=== PATIENT | female | born 1995 | race Two or more races ===

== ENCOUNTER 2025-06-20 04:35 | Inpatient (IN) | payer MEDICAID, OTHER ==
[2025-06-20] VITALS (7 sets, daily range): BP systolic 109–118; BP diastolic 73–79; PULSE 79–102; RESP 12–18; TEMP 97.4–97.9; O2SAT 94–99
[~2025-06-20] VITALS: Ht 160 cm; Wt 72.2 kg
--- NOTE | 2025-06-20 04:52 | ED.PDOC ---
GI ASSESSMENT HPI Comments 29 year old female presents to the ED with a chief complaint of abdominal pain onset 6 months. Patient has been experiencing intermittent RUQ pain for the past 6 months, was diagnosed with gallstones. Last night, patient noticed pain became constant, radiates to back. She took [place] at 04:00, had a slight improvement. Denies nausea, vomiting, diarrhea, fever, chills, dysuria, hematuria. No other symptoms or modifying factors present at this time. Chief Complaint: Abdominal Pain Time Seen by MD: 04:45 Reviewed Notes: Medications, Allergies Allergies: Coded Allergies: Cefaclor (Verified Allergy, Unknown, 06/20/25) Sulfa Antibiotics (Verified Allergy, Unknown, 06/20/25) Information Source: Patient, Spouse Mode of Arrival: Ambulatory Timing: Months Duration: Since onset Prehospital treatment: Pain Meds Quality: Sharp Vomitus: None Severity: Moderate Recent: None Recent Hx of: None Pain Location: RUQ Associated sign and symptoms: Abdominal Pain Past Medical History PAST MEDICAL HISTORY: Gallstones Surgical History: COMMUNICATION STUDIES PROFESSOR History: No Pertinent COMMUNICATION STUDIES PROFESSOR History Family History Family History: Reviewed,noncontributory to illness, No family hx of Cancer, No family hx of DM, No family hx of Heart nikia, No family hx of HTN, No family hx ofKidney nikia, No family hx of Liver nikia, No family hx of Lung nikia, No family hx of Stroke Social History Smoker: Non-Smoker Alcohol: Denies ETOH Use Drugs: Denies Drug Use Lives In: Home Constitutional: denies: chills, diaphoresis, fatigue, fever, malaise, sweats, weakness, others EENTM: denies: blurred vision, double vision, ear bleeding, ear discharge, ear drainage, ear pain, ear ringing, eye pain, eye redness, hearing loss, mouth pain, mouth swelling, nasal discharge, nose bleeding, nose congestion, nose pain, photophobia, tearing, throat pain, throat swelling, voice changes, others Respiratory: denies: cough, hemoptysis, orthopnea, SOB at rest, shortness of breath, SOB with excertion, stridor, wheezing, others Cardiovascular: denies: chest pain, dizzy spells, diaphoresis, Dyspnea on exertion, edema, irregular heart beat, left arm pain, lightheadedness, palpitations, PND, syncope, others Gastrointestinal: reports: abdominal pain; denies: abdomen distended, blood streaked bowels, constipated, diarrhea, dysphagia, difficulty swallowing, hematemesis, melena, nausea, poor appetite, poor fluid intake, rectal bleeding, rectal pain, vomiting, others Genitourinary: denies: abnormal vagina bleeding, burning, dyspareunia, dysuria, flank pain, frequency, hematuria, incontinence, pain, , vagina discharge, urgency, others Neurological: denies: dizziness, fainting, headache, left sided numbness, left sided weakness, numbness, paresthesia, pre-existing deficit, right sided numbness, right sided weakness, seizure, speech problems, tingling, tremors, weakness, others Musculoskeletal: reports: back pain; denies: gout, joint pain, joint swelling, muscle pain, muscle stiffness, neck pain, others Integumetry: denies: bruises, change in color, change in hair/nails, dryness, laceration, lesions, lumps, rash, wounds, others Allergic/Immunocompromised: denies: Difficulty Healing, Frequent Infections, Hives, Itching, others Hematologic/Lymphatic: denies: anemia, blood clots, easy bleeding, easy bruising, swollen glands, others Endocrine: denies: excessive hunger, excessive sweating, excessive thirst, excessive urination, flushing, intolerance to cold, intolerance to heat, unexplained weight gain, unexplained weight loss, others Psychiatric: denies: anxiety, bipolar disorder, depression, hopeless, panic disorder, schizophrenia, sleepless, suicidal, others All Other Systems: Reviewed and Negative Physical Exam General Appearance: No Apparent Distress, Normal HEENT: Normal ENT Inspection, Pharynx Normal, TMs Normal Neck: Full Range of Motion, Non-Tender, Normal, Normal Inspection Respiratory: Chest Non-Tender, Lungs Clear, No Accessory Muscle Use, No Respiratory Distress, Normal Breath Sounds Cardiovascular: No Edema, No JVD, No Murmur, No Gallop, Normal Peripheral Pulses, Regular Rate/Rhythm Breast Exam: Deferred Gastrointestinal: No Organomegaly, Non Tender, No Pulsatile Mass, Normal Bowel Sounds, Soft Genitalia: Deferred Pelvic: Deferred Rectal: Deferred Extremities: No calf tenderness, Normal capillary refill, Normal inspection, Normal range of motion, Non-tender, No pedal edema Musculoskeletal : Apperance: Normal Neurologic: Alert, supervisor trust accounts II-XII nml as Tested, No Motor Deficits, Normal Affect, Normal Mood, No Sensory Deficits Cerebellar Function: Normal Reflexes: Normal Skin: Dry, Normal Color, Warm Lymphatic: No Adenopathy Was a procedure done? Was a procedure done?: No GI differential Dx Differential Diagnosis: Cholecystitis, Gastritis/PUD, Gastroenteritis, Ischemic Bowel X-Ray, Labs, Meds, VS Vital Signs Date Time Temp Pulse Resp B/P (MAP) Pulse Ox O2 Delivery O2 Flow Rate FiO2 06/20/25 08:08 98.0 78 18 110/75 (87) 98 98.0 06/20/25 05:05 Room Air* 0 21 06/20/25 05:05 97.6 80 16 114/71 (85) 97 97.6 06/20/25 04:36 98.0 69 16 127/84 100 98.0 Lab Test 06/20/25 05:50 06/20/25 04:53 Range/Units Urine Color Yellow Yellow Urine Clarity Clear Clear Urine pH 5.5 5.0-9.0 Urine Specific [place] 1.033 1.001-1.035 Urine Protein Negative Negative Urine Ketones Negative Negative Urine Blood Negative Negative /uL Urine Nitrite Negative Negative Urine Bilirubin Negative Negative Urine Urobilinogen Normal Negative mg/dL Urine Leukocyte Esterase Negative Negative /uL Urine RBC None seen 0 - 4 /hpf Urine Microscopic WBC 3 0-5 /HPF Urine Squamous Epithelial Cells Few <5 /hpf Urine Bacteria None seen None Seen /hpf Urine Mucus Few None Seen Urine Glucose Normal Normal mg/dL Urine Test Negative Negative White Blood Count 11.6 H 4.4-10.8 10^3/uL Red Blood Count 4.62 4.0-5.20 10^6/uL Hemoglobin 13.5 12.2-16.2 g/dL Hematocrit 39.6 36.0-46.0 % Mean Corpuscular Volume 85.7 80.0-100.0 fL Mean Corpuscular Hemoglobin 29.2 28.0-32.0 pg Mean Corpuscular Hemoglobin Concent 34.0 32.0-36.0 g/dL Red Cell Distribution Width 13.0 11.8-14.3 % Platelet Count 419 140-450 10^3/uL Mean Platelet Volume 8.5 6.9-10.8 fL Neutrophils (%) (Auto) 71.1 37.0-80.0 % Lymphocytes (%) (Auto) 20.1 10.0-50.0 % Monocytes (%) (Auto) 5.9 0.0-12.0 % Eosinophils (%) (Auto) 2.3 0.0-7.0 % Basophils (%) (Auto) 0.6 0.0-2.0 % Neutrophils # (Auto) 8.2 1.6-8.6 10 ^3/uL Lymphocytes # (Auto) 2.3 0.4-5.4 10 ^3/uL Monocytes # (Auto) 0.7 0-1.3 10 ^3/uL Eosinophils # (Auto) 0.3 0-0.8 10 ^3/uL Basophils # (Auto) 0.1 0-0.2 10 ^3/uL Nucleated Red Blood Cells 0.1 % Sodium Level 142 136-145 mmol/L Potassium Level 3.8 3.5-5.1 mmol/L Chloride Level 107 98-107 mmol/L Carbon Dioxide Level 25 20-31 mmol/L Anion Gap 10 5-15 Blood Urea Nitrogen 11 9-23 mg/dL Creatinine 0.78 0.550-1.02 mg/dL Glomerular Filtration Rate Calc 104 >90 mL/min BUN/Creatinine Ratio 14.1 10.0-20.0 Serum Glucose 94 74-106 mg/dL Calcium Level 8.8 8.7-10.4 mg/dL Total Bilirubin 0.3 0.2-1.0 mg/dL Aspartate Amino Transferase (AST) 16 13-40 U/L Alanine Aminotransferase (ALT) 13 7-40 U/L Alkaline Phosphatase 84 46-116 U/L Total Protein 7.4 5.7-8.2 g/dL Albumin 4.6 3.2-4.8 g/dL Lipase 44 12-53 U/L Current Medications Medications (Trade) Dose Ordered Sig/Max Route Start Time Stop Time Status Last Admin Ondansetron HCl (Zofran) 4 mg ONCE ONCE IV 06/20/25 05:00 06/20/25 05:01 SD 06/20/25 05:10 Ketorolac Tromethamine (Toradol Injection) 15 mg ONCE ONCE IV 06/20/25 05:00 06/20/25 05:01 DC 06/20/25 05:10 Time of 1ST Reevaluation: 05:15 Reevaluation 1ST: Unchanged Patient Education/Counseling: Diagnosis, Treatment, Prognosis Family Education/Counseling: Diagnosis, Treatment, Prognosis SEPSIS Sepsis Screen Date sepsis recognized/suspect: Jun 20, 2025 Time Sepsis recognized/suspect: 437 Recent Procedure: No On Antibiotic Therapy: No Respiratory Rate >20: No Heart Rate >90: No Temp<36 C (96.8 F) or >38.3 C: No SBP <90 or MAP <65 mmHG: No New Acute Mental Status Change: No Is the patient on CPAP, BIPAP,: No Physician Orders Gallbladder (06/20/25 04:49) Morphine Sulfate Injection (06/20/25 08:45) Vital Signs Date Time Temp Pulse Resp B/P (MAP) Pulse Ox O2 Delivery O2 Flow Rate FiO2 06/20/25 08:08 98.0 78 18 110/75 (87) 98 98.0 06/20/25 05:05 Room Air* 0 21 06/20/25 05:05 97.6 80 16 114/71 (85) 97 97.6 06/20/25 04:36 98.0 69 16 127/84 100 98.0 Laboratory Tests Test 06/20/25 04:53 White Blood Count 11.6 10^3/uL (4.4-10.8) H Medications Medications Dose Ordered Sig/Max Route Start Time Stop Time Status Last Admin Dose Admin Ketorolac Tromethamine 15 mg ONCE ONCE IV 06/20/25 05:00 06/20/25 05:01 DC 06/20/25 05:10 Ondansetron HCl 4 mg ONCE ONCE IV 06/20/25 05:00 06/20/25 05:01 DC 06/20/25 05:10 Departure 1 Departure Time of Disposition: 08:41 (Patient presented with abdominal pain that was concerning for possible appendicits, gastritis, cholecystitis, colitis, gastroenteritis, sbo, or orther possible surgical emergency. Data: 1. I ordered and reviewed the result of at least 3 labs including a CBC, BMP, and Urinalysis. 2. I independently interpreted the following tests: CT Abdoment and Pelvis is concerning for acute cholecystitis .Risk:This patient has a high risk of morbidity due to further diagnostic testing or treatment and may suffer from an acute abdominal process disorder. Workup reveals acute cholecystitis and patient should be admitted for further workup. and possible expert consultation. ) Impression: Primary Impression: Acute cholecystitis Additional Impressions: Right upper quadrant pain Intractable abdominal pain Disposition: ADMITTED INPATIENT Admit to: Med Surg Condition: Guarded Critical Care Note Critical Care Time?: Yes Critical care comment: Intractable abdominal pain Authorized and Performed by: Christiano Lott MD Total critical care time: Approximately 38 minutes Due to a high probability of clinically significant, life threatening deteriorat ion, the patient required my highest level of preparedness to intervene emergently and I personally spent this critical care time directly and personally managing the patient. This critical care time included obtaining a history; examining the patient; pulse oximetry; ordering and review of studies; arranging urgent treatment with development of a management plan; evaluation of patient's response to treatment; frequent reassessment; and, discussions with other providers. This critical care time was performed to assess and manage the high probability of imminent, life-threatening deterioration that could result in multi-organ failure. It was exclusive of separately billable procedures and treating other patients and teaching time. Please see my other sections and the rest of the note for further information on patient assessment and treatment. Stability Stability form required: No I personally scribed for EVERT BARNEY MD ([email or web address]) on 06/20/25 at 04:52. Electronically submitted by Sary Juárez ([email or web address]). EVERT BARNEY MD Jun 20, 2025 04:52 CHRISTIANO LOTT MD Jun 20, 2025 08:42
[2025-06-20] MEDS: ONDANSETRON HCL 4 MG/2 ML VIAL IV ONE ×3 (05:10→14:00)
[2025-06-20] MEDS: KETOROLAC TROMETH 30 MG/ML 1ML VIAL IV ONE (05:10)
[2025-06-20 05:36] LABS: Hematocrit 39.6 % (36.0-46.0); Hemoglobin 13.5 g/dL (12.2-16.2); Mean Corpuscular Hemoglobin 29.2 pg (28.0-32.0); Mean Corpuscular Volume 85.7 fL (80.0-100.0); Nucleated Red Blood Cells % 0.1 %
[2025-06-20 05:52] LABS: Alanine Aminotransferase 13 U/L (7-40); Albumin 4.6 g/dL (3.2-4.8); Alkaline Phosphatase 84 U/L (46-116); Chloride 107 mmol/L (98-107); Potassium 3.8 mmol/L (3.5-5.1); Sodium 142 mmol/L (136-145)
[2025-06-20 06:09] LABS: Urine Protein, UAD Negative (Negative)
[2025-06-20 06:13] LABS: Anion Gap 10 (5-15); Calcium 8.8 mg/dL (8.7-10.4); Carbon Dioxide 25 mmol/L (20-31)
[2025-06-20 06:18] LABS: BUN/Creatinine Ratio 14.1 (10.0-20.0); Blood Urea Nitrogen 11 mg/dL (9-23); Glucose 94 mg/dL (74-106); Lipase 44 U/L (12-53)
[2025-06-20 06:19] LABS: Total Protein 7.4 g/dL (5.7-8.2)
[2025-06-20 06:20] LABS: Bilirubin, Total 0.3 mg/dL (0.2-1.0)
--- NOTE | 2025-06-20 06:56 | DVH ---
EXAM: US GALLBLADDER INDICATION: RUQ pain, h/o gallstones TECHNIQUE: Multiple real-time sonographic images were obtained of the right upper quadrant. COMPARISON: None FINDINGS: The liver demonstrates increased echotexture without focal mass lesions. The liver measures 13.0 cm. There is hepatopedal color doppler flow in the main portal vein. There is no intrahepatic b iliary ductal dilatation. The gallbladder contains an echogenic shadowing structure reflecting a stone that measures 1.4 cm. T he gallbladder wall measures 0.6 cm. The common bile duct measures 0.2 cm. There is a positive so nographic Bill's sign. The right kidney measures 10.7 cm. The right kidney is normal in contour, size, and shape. The echo genicity is normal. There is no hydronephrosis. The pancreas is not well visualized due to overlying bowel gas. Visualized portions of the aorta and inferior vena cava are unremarkable. No evidence of ascites. IMPRESSION: 1. Gallstone and acute cholecystitis. 2. Hepatic steatosis.
[2025-06-20] MEDS: HYDROmorphone HCL 2 MG/ML VL/or syr IV ONE (08:25)
[2025-06-20] MEDS: MORPHINE SULFATE 4 MG/ML SYR/VIAL IV ONE (08:49)
[2025-06-20] MEDS: SODIUM CHLORIDE 0.9% 1,000 ML IV ONE (08:56)
[2025-06-20] MEDS: ceFAZolin 2 GM/D5W50ml 50 ML IV ONE (10:23)
[2025-06-20] MEDS ORDERED: PROPOFOL 10 MG/ML 20 ML IV ONE (11:23)
[2025-06-20] MEDS ORDERED: fentaNYL CITRATE 100 MCG/2 ML VL ONE (11:23)
[2025-06-20] MEDS ORDERED: HYDROmorphone HCL 2 MG/ML VL/or syr ONE (11:24)
--- NOTE | 2025-06-20 11:24 | DVHINCON2 ---
Consultation - Surgical Date Seen: Jun 20, 2025 Referring Physician Reason for Consultation Acute cholecystitis History of Present Illness History of Present Illness Mrs. Mchugh is a 29 yo F who presents with RUQ pain that started last night and has been barely relieved with the use of norco. Associated with nausea but no emesis. First episode was approximately 2 yrs ago during her last . Symptoms abated after but since November she has bee getting intermittent episodes. Denies: fevers, chills, acholic stools, darkening of urine. PMH: denies PSH: CS x1; Dx lap for endometriosis ETOH/TOB/Drugs: denies Allergies and medications Allergies: Coded Allergies: Cefaclor (Verified Allergy, Unknown, 06/20/25) Sulfa Antibiotics (Verified Allergy, Unknown, 06/20/25) Review of systems Review of Systems: Not Done Examination Vital signs Vital Signs Date Time Temp Pulse Resp B/P (MAP) Pulse Ox O2 Delivery O2 Flow Rate FiO2 06/20/25 08:08 98.0 78 18 110/75 (87) 98 98.0 06/20/25 05:05 Room Air* 0 21 Laboratory Labs Test 06/20/25 05:50 06/20/25 04:53 Range/Units Urine Color Yellow Yellow Urine Clarity Clear Clear Urine pH 5.5 5.0-9.0 Urine Specific [place] 1.033 1.001-1.035 Urine Protein Negative Negative Urine Ketones Negative Negative Urine Blood Negative Negative /uL Urine Nitrite Negative Negative Urine Bilirubin Negative Negative Urine Urobilinogen Normal Negative mg/dL Urine Leukocyte Esterase Negative Negative /uL Urine RBC None seen 0 - 4 /hpf Urine Microscopic WBC 3 0-5 /HPF Urine Squamous Epithelial Cells Few <5 /hpf Urine Bacteria None seen None Seen /hpf Urine Mucus Few None Seen Urine Glucose Normal Normal mg/dL Urine Test Negative Negative White Blood Count 11.6 H 4.4-10.8 10^3/uL Red Blood Count 4.62 4.0-5.20 10^6/uL Hemoglobin 13.5 12.2-16.2 g/dL Hematocrit 39.6 36.0-46.0 % Mean Corpuscular Volume 85.7 80.0-100.0 fL Mean Corpuscular Hemoglobin 29.2 28.0-32.0 pg Mean Corpuscular Hemoglobin Concent 34.0 32.0-36.0 g/dL Red Cell Distribution Width 13.0 11.8-14.3 % Platelet Count 419 140-450 10^3/uL Mean Platelet Volume 8.5 6.9-10.8 fL Neutrophils (%) (Auto) 71.1 37.0-80.0 % Lymphocytes (%) (Auto) 20.1 10.0-50.0 % Monocytes (%) (Auto) 5.9 0.0-12.0 % Eosinophils (%) (Auto) 2.3 0.0-7.0 % Basophils (%) (Auto) 0.6 0.0-2.0 % Neutrophils # (Auto) 8.2 1.6-8.6 10 ^3/uL Lymphocytes # (Auto) 2.3 0.4-5.4 10 ^3/uL Monocytes # (Auto) 0.7 0-1.3 10 ^3/uL Eosinophils # (Auto) 0.3 0-0.8 10 ^3/uL Basophils # (Auto) 0.1 0-0.2 10 ^3/uL Nucleated Red Blood Cells 0.1 % Sodium Level 142 136-145 mmol/L Potassium Level 3.8 3.5-5.1 mmol/L Chloride Level 107 98-107 mmol/L Carbon Dioxide Level 25 20-31 mmol/L Anion Gap 10 5-15 Blood Urea Nitrogen 11 9-23 mg/dL Creatinine 0.78 0.550-1.02 mg/dL Glomerular Filtration Rate Calc 104 >90 mL/min BUN/Creatinine Ratio 14.1 10.0-20.0 Serum Glucose 94 74-106 mg/dL Calcium Level 8.8 8.7-10.4 mg/dL Total Bilirubin 0.3 0.2-1.0 mg/dL Aspartate Amino Transferase (AST) 16 13-40 U/L Alanine Aminotransferase (ALT) 13 7-40 U/L Alkaline Phosphatase 84 46-116 U/L Total Protein 7.4 5.7-8.2 g/dL Albumin 4.6 3.2-4.8 g/dL Lipase 44 12-53 U/L Examination: GENERAL:Normal, HEENT:Normal (no icterus), ABDOMEN:Abnormal (non distended, scars well healed, soft, depressible, RUQ tender, Neg Bill's, no rebound, no guarding) Problem List/Assessment/Plan Problems: (1) Acute cholecystitis Assessment and Plan 29 yo F who presents with acute cholecystitis with mild leukocytosis. US shows stone at neck with thick gallbladder wall, but no pericholecystic fluid. Pt will benefit from lap cholecystectomy. Procedure, risks, benefits, complications and alternatives discussed with patient and family. They agree with surgical plan. -Admit to hospitalist -java technical manager to OR for lap kiko -Zosyn -CBC/CMP/Direct bili in am -Low fat diet post surgery Plan discussed with Plan discussed with: Patient, Spouse Visit Coding Surgery Date of Service if different f: Jun 20, 2025 Billing Provider: ADRIANNA NULL MD Surgery Visit Codes: 79650 - INP CONSULT <55 MIN ADRIANNA NULL MD Jun 20, 2025 11:24
[2025-06-20] MEDS ORDERED: ROCURONIUM 10MG/ML 10ML VIAL IV ONE (11:52)
[2025-06-20] MEDS ORDERED: ONDANSETRON HCL 4 MG/2 ML VIAL ONE (11:53)
[2025-06-20] MEDS: BUPIVACAINE 0.25% INJ 50ML VIAL ONE (12:10)
[2025-06-20] MEDS ORDERED: SUGAMMADEX 200mg/2ml Vial (100MG/ML) IV ONE (12:57)
[2025-06-20] MEDS ORDERED: ONDANSETRON HCL 4 MG/2 ML VIAL IV PRN (13:30)
--- NOTE | 2025-06-20 13:42 | DVHOP2 ---
Operative Report - 2 Report Details Date: 06/20/25 Preop Diagnosis: Acute cholecystitis Postop Diagnosis: Acute cholecystitis Surgeon: Leon Khan MD Roast Master: Ortiz Alvarado NP Anesthesiologist: Dr. Moe Anesthesia: General Consent: The patient was informed of the risks and benefits of the procedure. These include but are not limited to complications of anesthesia, postoperative infection, incomplete relief of symptoms, recurrence of symptoms, damage to blood vessels, nerves and tendons, deep venous thrombosis, pulmonary embolism and possible need for repeat surgery in the future. Complications: none Estimated Blood Loss: 5ml Findings: Acutely inflamed gallbladder with omentum adhered over it. Stone at neck of the gallbladder. Name of Procedure Performed Laparoscopic Cholecystectomy Procedure Details Procedure Details: Upon arrival to the operating room the patient was transferred to the operating table and placed in the supine with arms extended. General endotracheal anesthesia was performed. Time out was carried out. Patient was prepped and dr aped in the standard sterile surgical fashion. I made an infraumbilical curvilinear incision. Umbilical stock was grasped with Claudia. Blunt dissection was carried out to its base. Utilizing Elizabeth technique I gained entry into the peritoneal cavity. Fascia retention sutures of 0 Vicryl placed in figure of eight fashion. Elizabeth trocar was introduced and abdomen insufflated with jarrell eration to 15mmHG. I placed 3 additional 5mm ports at the epigastric/right subcostal at mid clavicular line/ right flank; under direct vision. Attention was then turned to the gallblader, it was grasped at the fundus and elevated towards the right shoulder. Omentum was adhered to the gallbladder and it was bluntly and with cautery dissected off. I then opened the peritoneum on either side of the gallbladder starting laterally. I then identified Calot's triangle. The cystic artery and cystic duct were fully skeletonized. Critical view was obtained. Then artery was clipped proximally twice and one distal. The duct was clipped three times proximally and one distal. Both artery and duct were cut. The gallbladder was then removed from the liver bed with cautery. An additional posterior branch of the cystic artery was clipped and cut. There was no spillage of bile or stones. Gallbladder and contents was placed in Endocatch bag and removed under direct vision. We then did some minimal irrigation and suctioning. Two small spots of slow ooze were cauterized, hemostasis achieved. Ports removed under direct vision. All counts complete and correct. Previous fascial stitch was closed. Skin closed with 4-0 Monocryl and [place] anderson. Marcaine 0.25% used as local. Patient tolerated the procedure well and was transferred to PACU in stable condition. Disposition Still a Patient LEON NULL MD Jun 20, 2025 13:42
[2025-06-20] MEDS: D5W/SOD CHLO 0.9% 1,000 ML IV SCH (13:45)
[2025-06-20] MEDS: ACETAMINOPHEN IV 1000 MG/100ML (10MG/ML) IV PRN (13:51)
[2025-06-20] MEDS: HYDROmorphone HCL 2 MG/ML VL/or syr IV PRN (13:51)
--- NOTE | 2025-06-20 16:24 | DVHHP2 ---
Review of Systems Allergies: Coded Allergies: Cefaclor (Verified Allergy, Unknown, 06/20/25) Sulfa Antibiotics (Verified Allergy, Unknown, 06/20/25) Medications Current Medications Medications Dose Ordered Sig/Max Route Start Time Stop Time Status Last Admin Dose Admin Morphine Sulfate 2 mg Q4HP PRN IV 06/20/25 13:45 Dextrose/Sodium Chloride 1,000 ml @ 150 mls/hr Q6H40M IV 06/20/25 13:45 Exam Vital Signs Vital Signs Date Time Temp Pulse Resp B/P (MAP) Pulse Ox O2 Delivery O2 Flow Rate FiO2 06/20/25 15:58 91 16 95 Nasal Cannula 4.0 06/20/25 15:58 95 06/20/25 15:53 110/67 (81) 06/20/25 13:13 97.1 97.1 Labs/Xrays Labs Test 06/20/25 05:50 06/20/25 04:53 Range/Units Urine Color Yellow Yellow Urine Clarity Clear Clear Urine pH 5.5 5.0-9.0 Urine Specific [place] 1.033 1.001-1.035 Urine Protein Negative Negative Urine Ketones Negative Negative Urine Blood Negative Negative /uL Urine Nitrite Negative Negative Urine Bilirubin Negative Negative Urine Urobilinogen Normal Negative mg/dL Urine Leukocyte Esterase Negative Negative /uL Urine RBC None seen 0 - 4 /hpf Urine Microscopic WBC 3 0-5 /HPF Urine Squamous Epithelial Cells Few <5 /hpf Urine Bacteria None seen None Seen /hpf Urine Mucus Few None Seen Urine Glucose Normal Normal mg/dL Urine Test Negative Negative White Blood Count 11.6 H 4.4-10.8 10^3/uL Red Blood Count 4.62 4.0-5.20 10^6/uL Hemoglobin 13.5 12.2-16.2 g/dL Hematocrit 39.6 36.0-46.0 % Mean Corpuscular Volume 85.7 80.0-100.0 fL Mean Corpuscular Hemoglobin 29.2 28.0-32.0 pg Mean Corpuscular Hemoglobin Concent 34.0 32.0-36.0 g/dL Red Cell Distribution Width 13.0 11.8-14.3 % Platelet Count 419 140-450 10^3/uL Mean Platelet Volume 8.5 6.9-10.8 fL Neutrophils (%) (Auto) 71.1 37.0-80.0 % Lymphocytes (%) (Auto) 20.1 10.0-50.0 % Monocytes (%) (Auto) 5.9 0.0-12.0 % Eosinophils (%) (Auto) 2.3 0.0-7.0 % Basophils (%) (Auto) 0.6 0.0-2.0 % Neutrophils # (Auto) 8.2 1.6-8.6 10 ^3/uL Lymphocytes # (Auto) 2.3 0.4-5.4 10 ^3/uL Monocytes # (Auto) 0.7 0-1.3 10 ^3/uL Eosinophils # (Auto) 0.3 0-0.8 10 ^3/uL Basophils # (Auto) 0.1 0-0.2 10 ^3/uL Nucleated Red Blood Cells 0.1 % Sodium Level 142 136-145 mmol/L Potassium Level 3.8 3.5-5.1 mmol/L Chloride Level 107 98-107 mmol/L Carbon Dioxide Level 25 20-31 mmol/L Anion Gap 10 5-15 Blood Urea Nitrogen 11 9-23 mg/dL Creatinine 0.78 0.550-1.02 mg/dL Glomerular Filtration Rate Calc 104 >90 mL/min BUN/Creatinine Ratio 14.1 10.0-20.0 Serum Glucose 94 74-106 mg/dL Calcium Level 8.8 8.7-10.4 mg/dL Total Bilirubin 0.3 0.2-1.0 mg/dL Aspartate Amino Transferase (AST) 16 13-40 U/L Alanine Aminotransferase (ALT) 13 7-40 U/L Alkaline Phosphatase 84 46-116 U/L Total Protein 7.4 5.7-8.2 g/dL Albumin 4.6 3.2-4.8 g/dL Lipase 44 12-53 U/L SEPSIS Sepsis Screen Date sepsis recognized/suspect: Jun 20, 2025 Time Sepsis recognized/suspect: 0438 Recent Procedure: No On Antibiotic Therapy: No Respiratory Rate >20: No Heart Rate >90: No Temp<36 C (96.8 F) or >38.3 C: No SBP <90 or MAP <65 mmHG: No New Acute Mental Status Change: No Is the patient on CPAP, BIPAP,: No Physician Orders * Surgical Consult (06/20/25 ) Obtain Consent For: (06/20/25 10:58) Obtain Consent For Anesthesia (06/20/25 10:58) Ondansetron Hcl (Zofran) (06/20/25 11:53) Surface Hydrologist (06/20/25 13:23) Notify Anesth. For Changes: (06/20/25 13:23) Discharge To Room Per Criteria (06/20/25 13:23) Admit (06/20/25 13:31) Morphine Sulfate Injection (06/20/25 13:45) D5w/Sod Chlo 0.9% (D5w Ns 0.9%) (06/20/25 13:45) Clear Liq Diet (06/20/25 Dinner) Levofloxacin Levaquin (06/21/25 10:00) Levofloxacin Levaquin (06/20/25 16:30) Metronidazole Ivpb Flagyl (06/20/25 22:00) Hydrocodone-Acet 5/325mg Tab ([place] 5/32 (06/20/25 16:30) Ondansetron Hcl (Zofran) (06/20/25 16:30) Pantoprazole (Protonix) (06/21/25 10:00) Complete Blood Count (06/21/25 06:00) Comprehensive Metabolic Panel (06/21/25 06:00) Acetaminophen Tablet (Tylenol Tablet) (06/20/25 16:30) Vital Signs Date Time Temp Pulse Resp B/P (MAP) Pulse Ox O2 Delivery O2 Flow Rate FiO2 06/20/25 15:58 91 16 95 Nasal Cannula 4.0 06/20/25 15:58 Nasal Cannula 4.0 95 06/20/25 15:53 92 18 110/67 (81) 96 06/20/25 15:23 82 19 118/70 (86) 95 06/20/25 15:02 96 24 114/71 06/20/25 14:53 91 19 108/76 (87) 96 06/20/25 14:38 100 20 111/71 (84) 96 06/20/25 14:23 93 15 119/84 (96) 95 06/20/25 14:08 95 20 122/77 (92) 99 06/20/25 14:05 Nasal Cannula 6.0 94 06/20/25 14:05 94 14 94 Nasal Cannula 6.0 06/20/25 14:04 104 13 115/79 8/28/25 13:53 104 19 126/87 (100) 97 06/20/25 13:51 106 19 122/79 06/20/25 13:43 Room Air 0 99 06/20/25 13:43 102 12 99 Room Air 0 06/20/25 13:38 79 12 132/74 (93) 100 06/20/25 13:23 89 16 114/74 (87) 100 06/20/25 13:18 83 12 108/68 (81) 99 06/20/25 13:13 Mask 6.0 99 06/20/25 13:13 79 12 99 Mask 6.0 06/20/25 13:13 97.1 79 12 96/57 (70) 99 97.1 Laboratory Tests Test 06/20/25 04:53 White Blood Count 11.6 10^3/uL (4.4-10.8) H Medications Medications Dose Ordered Sig/Max Route Start Time Stop Time Status Last Admin Dose Admin Acetaminophen 1,000 mg [id number] PRN IV 06/20/25 13:30 06/20/25 13:38 DC 06/20/25 14:19 1,000 MG Bupivacaine HCl 50 ml STK-MED ONCE .ROUTE 06/20/25 11:22 06/20/25 11:20 DC 06/20/25 12:10 16 ML Cefazolin Sodium/ Dextrose 50 ml @ 50 mls/hr ONCE ONCE IV 06/20/25 08:45 06/20/25 09:44 DC 06/20/25 10:23 50 MLS/HR Cefoxitin Sodium 100 ml @ ud STK-MED ONCE IV 06/20/25 11:22 06/20/25 11:20 DC 06/20/25 11:45 Hydromorphone HCl 0.5 mg Q10M PRN IV 06/20/25 13:30 06/20/25 14:11 DC 06/20/25 15:02 0.5 MG Ketorolac Tromethamine 15 mg ONCE ONCE IV 06/20/25 05:00 06/20/25 05:01 DC 06/20/25 05:10 15 MG Metronidazole 100 ml @ 100 mls/hr ONCE ONCE IV 06/20/25 08:45 06/20/25 09:44 DC 06/20/25 08:56 100 MLS/HR Ondansetron HCl 4 mg ONCE ONCE IV 06/20/25 05:00 06/20/25 05:01 DC 06/20/25 05:10 4 MG Sodium Chloride 1,000 ml @ 1,000 mls/hr Q1H ONCE IV 06/20/25 08:45 06/20/25 09:44 DC 06/20/25 08:56 1,000 MLS/HR Assessment/Plan Assessment/Plan see dictated note Plan discussed with: Patient My Orders Orders - RICARDO SHAH MD Procedure Category Date Status Time Admit ADMIT 06/20/25 Transmitted 13:31 Morphine Sulfate PHA 06/20/25 In Process Injection 13:45 D5w/Sod Chlo 0.9% PHA 06/20/25 In Process (D5w Ns 0.9%) 13:45 Clear Liq Diet DIET 06/20/25 Transmitted Dinner Levofloxacin Levaquin PHA 06/21/25 Transmitted 10:00 Levofloxacin Levaquin PHA 06/20/25 Transmitted 16:30 Metronidazole Ivpb PHA 06/20/25 Transmitted Flagyl 22:00 Hydrocodone-Acet PHA 06/20/25 Transmitted 5/325mg Tab ([place] 16:30 Ondansetron Hcl PHA 06/20/25 Transmitted (Zofran) 16:30 Pantoprazole PHA 06/21/25 Transmitted (Protonix) 10:00 Complete Blood Count LAB 06/21/25 Verified 06:00 Comprehensive LAB 06/21/25 Verified Metabolic Panel 06:00 Acetaminophen Tablet PHA 06/20/25 Verified (Tylenol Tablet) 16:30 Date of Service: Jun 20, 2025 Billing Provider: RICARDO SHAH MD Common Visit Codes: [id number] INP/OBS CARE (HIGH) RICARDO SHAH MD Jun 20, 2025 16:24
[2025-06-20] MEDS ORDERED: ACETAMINOPHEN 325 MG TAB PO PRN (16:30)
--- NOTE | 2025-06-20 16:37 | DVHHP ---
ADMIT DATE: 06/20/2025 HISTORY OF PRESENT ILLNESS: The patient is a 29-year-old lady who was admitted with complaints of severe pain in the right upper quadrant accompanied by nausea. The patient has had previous similar episodes. The patient denies any fever. No history of dizziness or syncope. Review of rest of systems otherwise currently negative. PAST MEDICAL HISTORY: Significant for endometriosis. MEDICATIONS: She takes no meds on a regular basis. ALLERGIES: CEFACLOR AND SULFA. SOCIAL HISTORY: Denies smoking or alcohol. Lives at home with family. FAMILY HISTORY: Negative. PHYSICAL EXAMINATION: GENERAL: The patient is awake and alert. VITAL SIGNS: Temperature of 97.1, pulse of 100 per minute. Blood pressure 111/71. SHEENT: Unremarkable. NECK: There is no JVD, no pedal edema. LUNGS: Equal bilaterally. No added sounds. CARDIOVASCULAR SYSTEM: S1 and S2 is regular without murmurs. ABDOMEN: Soft. Bowel sounds are hypoactive. NEUROLOGIC: Nonfocal. MUSCULOSKELETAL: Normal. ASSESSMENT AND PLAN: * Cholelithiasis with acute cholecystitis, status post laparoscopic cholecystectomy. The patient will be placed on IV fluids along with pain medications and IV antibiotics. * Morbid obesity. MD STERLING Perez/KYUNG TID: [id number] RECEIPT: [id number]
[2025-06-20] MEDS: MORPHINE SULFATE INJ 2 MG/ml SYRG IV PRN (16:49)
[2025-06-20] MEDS: SUCCINYLCHOLINE CHLORIDE 20 MG/ML 10ML VIAL IV ONE (16:57)
[2025-06-20] MEDS: HYDROcodone-ACET 5/325MG TAB PO PRN (19:44)
[2025-06-21] MEDS: ONDANSETRON HCL 4 MG/2 ML VIAL IV PRN (00:45)
[2025-06-21 05:00] VITALS: BP 114/86; PULSE 78; RESP 17; TEMP 97.4; O2SAT 98
[2025-06-21 06:08] LABS: Hematocrit 34.7 % (36.0-46.0); Hemoglobin 11.9 g/dL (12.2-16.2); Mean Corpuscular Hemoglobin 29.0 pg (28.0-32.0); Mean Corpuscular Volume 84.7 fL (80.0-100.0); Nucleated Red Blood Cells % 0.0 %
[2025-06-21 06:36] LABS: Albumin 4.1 g/dL (3.2-4.8); Alkaline Phosphatase 73 U/L (46-116); Anion Gap 9 (5-15); BUN/Creatinine Ratio 10.9 (10.0-20.0); Carbon Dioxide 23 mmol/L (20-31); Potassium 3.9 mmol/L (3.5-5.1); Sodium 140 mmol/L (136-145); Total Protein 6.4 g/dL (5.7-8.2)
[2025-06-21 06:37] LABS: Bilirubin, Total 0.6 mg/dL (0.2-1.0)
[2025-06-21 06:43] LABS: Alanine Aminotransferase 53 U/L (7-40); Blood Urea Nitrogen 6 mg/dL (9-23); Calcium 8.2 mg/dL (8.7-10.4); Chloride 108 mmol/L (98-107); Glucose 106 mg/dL (74-106)
[2025-06-21 08:00] VITALS: PULSE 82; RESP 20; O2SAT 100
[2025-06-21 09:00] VITALS: BP 105/73; PULSE 81; RESP 18; TEMP 98.2; O2SAT 96
[2025-06-21] MEDS: PANTOPRAZOLE 40 MG/10 ML VIAL INJ IV SCH (10:36)
--- NOTE | 2025-06-21 10:41 | DVHPN2 ---
Progress Note - Surgical Date Seen: Jun 21, 2025 Post op day Post op day: 1 Subjective Patient reports: No new complaints (Passing gas and voiding, a febrile with vital signs stable), Feels better Review of Systems: Not Done Objective Vital signs Vital Sign Date Time Temp Pulse Resp B/P (MAP) Pulse Ox O2 Delivery O2 Flow Rate FiO2 06/21/25 09:00 98.2 81 18 105/73 (84) 96 98.2 06/20/25 20:00 Room Air* 0 21 Total Intake and Output 06/20/25 06/20/25 06/21/25 15:00 23:00 07:00 Intake Total 1300 ml 100 ml 800 ml Balance 1300 ml 100 ml 800 ml Medications Current Medications Medications Dose Ordered Sig/Max Route Start Time Stop Time Status Last Admin Dose Admin Morphine Sulfate 2 mg Q4HP PRN IV 06/20/25 13:45 06/21/25 01:34 2 MG Dextrose/Sodium Chloride 1,000 ml @ 150 mls/hr Q6H40M IV 06/20/25 13:45 06/21/25 04:47 150 MLS/HR Levofloxacin/ Dextrose 100 ml @ 100 mls/hr DAILY IV 06/21/25 10:00 Metronidazole 100 ml @ 100 mls/hr Q8HR IV 06/20/25 22:00 06/21/25 05:05 100 MLS/HR Acetaminophen/ Hydrocodone Bitart 1 tab Q6HPRN PRN PO 06/20/25 16:30 06/21/25 05:05 1 TAB Ondansetron HCl 4 mg Q6HPRN PRN IV 06/20/25 16:30 06/21/25 00:45 4 MG Pantoprazole Sodium 40 mg DAILY IV 06/21/25 10:00 Acetaminophen 650 mg Q6HP PRN PO 06/20/25 16:30 Laboratory Laboratory Tests 06/21/25 05:41 Test 06/21/25 05:41 Range/Units Serum Glucose 106 74-106 mg/dL Examination: GENERAL:Normal, HEENT:Normal (Anicteric), ABDOMEN:Normal (Nondistended, soft, depressible, incision sites without surrounding erythema or edema, umbilical incision with some inferior ecchymosis, very minimal right upper quadrant tenderness, no rebound no guarding) Labs and/or images reviewed: Labs reviewed by me (Some increase in leukocytosis likely reactive, no bilirubin elevation) Problem List/Assessment/Plan Problems: (1) Acute cholecystitis Assessment and Plan 29-year-old female currently postop day 1 from laparoscopic cholecystectomy for acute cholecystitis. Patient is doing well today, tolerating diet, vital signs stable. Patient is also ambulating. 1. Okay to discharge home 2. Low-fat diet 3. No heavy lifting over 10 lb 4. No bathing or dipping in water for 2 weeks 5. OK to shower, soap and water over incisions 6. Follow-up in 3-4 weeks [address] [facility] with Dr. Wheatley. My Orders My Orders Orders - ADRIANNA NULL MD Procedure Category Date Status Time Obtain Consent For: ORDERS 06/20/25 Transmitted 10:58 Obtain Consent For GHASSAN 06/20/25 In Process Anesthesia 10:58 Cardiac DIET 06/21/25 Transmitted Diet-2gna,Lofat,Lochol Lunch Plan discussed with Plan discussed with: Patient, Spouse Visit Coding Surgery Date of Service if different f: Jun 21, 2025 Billing Provider: ADRIANNA NULL MD Surgery Visit Codes: [id number] INP/OBS CARE(MOD) ADRIANNA NULL MD Jun 21, 2025 10:41
[2025-06-21 13:00] VITALS: BP 128/81; PULSE 82; RESP 20; TEMP 97.9; O2SAT 100
[2025-06-21] MEDS ORDERED: DOCU-94 PO (16:11)
[2025-06-21] MEDS ORDERED: HYDR-4902 PO (16:11)
[2025-06-21] MEDS ORDERED: NALO4SPR2 (16:11)
--- NOTE | 2025-06-21 16:14 | DVHDS2 ---
Discharge Summary Date of Admission Jun 20, 2025 at 13:31 Date of Discharge: Jun 21, 2025 Labs/Diagnostic Data: Laboratory Results Test 06/21/25 05:41 06/20/25 05:50 06/20/25 04:53 White Blood Count 13.5 10^3/uL (4.4-10.8) Red Blood Count 4.10 10^6/uL (4.0-5.20) Hemoglobin 11.9 g/dL (12.2-16.2) Hematocrit 34.7 % (36.0-46.0) Mean Corpuscular Volume 84.7 fL (80.0-100.0) Mean Corpuscular Hemoglobin 29.0 pg (28.0-32.0) Mean Corpuscular Hemoglobin Concent 34.2 g/dL (32.0-36.0) Red Cell Distribution Width 13.0 % (11.8-14.3) Platelet Count 370 10^3/uL (140-450) Mean Platelet Volume 8.0 fL (6.9-10.8) Neutrophils (%) (Auto) 85.8 % (37.0-80.0) Lymphocytes (%) (Auto) 8.4 % (10.0-50.0) Monocytes (%) (Auto) 5.7 % (0.0-12.0) Eosinophils (%) (Auto) 0.0 % (0.0-7.0) Basophils (%) (Auto) 0.1 % (0.0-2.0) Neutrophils # (Auto) 11.6 10 ^3/uL (1.6-8.6) Lymphocytes # (Auto) 1.1 10 ^3/uL (0.4-5.4) Monocytes # (Auto) 0.8 10 ^3/uL (0-1.3) Eosinophils # (Auto) 0 10 ^3/uL (0-0.8) Basophils # (Auto) 0 10 ^3/uL (0-0.2) Nucleated Red Blood Cells 0.0 % Sodium Level 140 mmol/L (136-145) Potassium Level 3.9 mmol/L (3.5-5.1) Chloride Level 108 mmol/L (98-107) Carbon Dioxide Level 23 mmol/L (20-31) Anion Gap 9 (5-15) Blood Urea Nitrogen 6 mg/dL (9-23) Creatinine 0.55 mg/dL (0.550-1.02) Glomerular Filtration Rate Calc 126 mL/min (>90) BUN/Creatinine Ratio 10.9 (10.0-20.0) Serum Glucose 106 mg/dL (74-106) Calcium Level 8.2 mg/dL (8.7-10.4) Total Bilirubin 0.6 mg/dL (0.2-1.0) Direct Bilirubin 0.2 mg/dL (<0.3) Aspartate Amino Transferase (AST) 48 U/L (13-40) Alanine Aminotransferase (ALT) 53 U/L (7-40) Alkaline Phosphatase 73 U/L (46-116) Total Protein 6.4 g/dL (5.7-8.2) Albumin 4.1 g/dL (3.2-4.8) Urine Color Yellow (Yellow) Urine Clarity Clear (Clear) Urine pH 5.5 (5.0-9.0) Urine Specific [place] 1.033 (1.001-1.035) Urine Protein Negative (Negative) Urine Ketones Negative (Negative) Urine Blood Negative /uL (Negative) Urine Nitrite Negative (Negative) Urine Bilirubin Negative (Negative) Urine Urobilinogen Normal mg/dL (Negative) Urine Leukocyte Esterase Negative /uL (Negative) Urine RBC None seen /hpf (0 - 4) Urine Microscopic WBC 3 /HPF (0-5) Urine Squamous Epithelial Cells Few /hpf (<5) Urine Bacteria None seen /hpf (None Seen) Urine Mucus Few (None Seen) Urine Glucose Normal mg/dL (Normal) Urine Test Negative (Negative) Lipase 44 U/L (12-53) Other Laboratory Tests 06/21/25 05:41 Brief Hx & Hospital Course: 59-year-old female with a no significant past medical history initially presented to the hospital with a right upper quadrant pain associated with the nausea found to have acute cholecystitis. Patient underwent laparoscopic cholecystectomy postoperatively patient did fairly well. Patient is cleared by General surgery to be discharged. Patient is being discharged under stable condition with a close follow up as an outpatient with the PCP as well as General surgery. No driving, no playing on machinery, no signing legal documents while on narcotics. Condition at Discharge: Stable Final Diagnosis/Problems List 1.Acute cholecystitis post lap cholecystectomy 2. Endometriosis 3. Overweight Discharge Disposition: Home SNF Discharge Will this Physician continue t: No Discharge Instruct/Medications Diet: Cardiac 2g Na,low cholest Activity: See Comment Activity comment: No driving, no signing legal documents, no playing on machinery while on narcotics, No lifting of more than 10 lb weight. Follow Up/Referral: Follow up with the general surgery in 1-2 weeks Medications: [place], Narcan, Colace as prescribed. New Medications: Docusate Sodium (Colace) 100 Mg Cap 1 CAP PO BID PRN, #30 CAP Hydrocodone-Acetaminophen (Hydrocodone Bitartrate/AC 5-325 mg) 1 Tab Tab 1 TAB PO Q8HP PRN, #10 TAB Naloxone HCl (Narcan) 4 Mg/0.1 Ml Spr 4 MG NA HEALTHCARE NETWORK CONSULTANT, #2 SPRAY Scheduled Naloxone HCl (Narcan), 4 MG NA HEALTHCARE NETWORK CONSULTANT Scheduled PRN Docusate Sodium (Colace), 1 CAP PO BID PRN Hydrocodone-Acetaminophen (Hydrocodone Bitartrate/AC 5-325 mg), 1 TAB PO Q8HP PRN Discharge Statement: "Patient was advised to return to the ER or call 911 if any headaches, dizziness, shortness of breath, chest pain, abdominal pain, bleeding, fevers, or worsening of medical condition. Patient was counseled about treatment plan, medications, possible side effects, patientverbalized understanding. All questions were answered to the best of my ability. This discharge took greater then 30 minutes in planning, reviewing documentation, counseling the patient, and discussing with other team members." ASSESSMENT ASSESSMENT Assessment 1.Acute cholecystitis post lap cholecystectomy 2. Endometriosis 3. Overweight Date of Service: Jun 22, 2025 Billing Provider: JEANNE UREÑA MD Common Visit Codes: [id number] DISCH DAY >30min JEANNE UREÑA MD Jun 21, 2025 16:14
[2025-06-21 16:54] VITALS: BP 107/67; PULSE 80; RESP 20; TEMP 98.5; O2SAT 100
[2025-06-21 17:09] VITALS: BP 107/67; PULSE 80; RESP 20; TEMP 98.5; O2SAT 100
== END 2025-06-21 18:11 | disposition home or self-care (01) | DRG 263 ==
LOC: ER 04:35 → OVERFLOW 13:31 → CENTRAL 17:28
PROVIDERS: ADMIT Internal Medicine; ATTEND Internal Medicine
PROC: 0FT44ZZ Resection of Gallbladder, Percutaneous Endoscopic Approach (ICD-10-PCS; principal; 2025-06-20 11:42)
DX: K80.00 Calculus of gallbladder with acute cholecystitis without obstruction (principal); E66.01 Morbid (severe) obesity due to excess calories; N80.8 Other endometriosis; Z68.28 Body mass index [BMI] 28.0-28.9, adult; Z88.2 Allergy status to sulfonamides
CPT/HCPCS: 36415; 76705; 80053; 81001; 81025; 82248; 83690; 85025; 86850; 86900; 86901; 96374; 96375; 99291; G0378; J0131; J0330; J0694; J1100; J1885; J1956; J2405; J2470; J2704; J3490

== ENCOUNTER 2025-06-24 20:11 | Emergency (ER) | payer MEDICAID ==
[~2025-06-24] VITALS: Ht 160 cm; Wt 66.4 kg
[~2025-06-24 20:11] MED LIST: DOCU-94 PO; HYDR-4902 PO; NALO4SPR2
[2025-06-24 21:53] LABS: Urine Protein, UAD Negative (Negative)
[2025-06-24 21:56] LABS: Hematocrit 38.6 % (36.0-46.0); Hemoglobin 13.3 g/dL (12.2-16.2); Mean Corpuscular Hemoglobin 29.3 pg (28.0-32.0); Mean Corpuscular Volume 84.8 fL (80.0-100.0); Nucleated Red Blood Cells % 0.1 %
[2025-06-24 22:12] LABS: Alanine Aminotransferase 35 U/L (7-40); Albumin 4.6 g/dL (3.2-4.8); Alkaline Phosphatase 82 U/L (46-116); Anion Gap 9 (5-15); BUN/Creatinine Ratio 16.2 (10.0-20.0); Bilirubin, Total 0.6 mg/dL (0.2-1.0); Blood Urea Nitrogen 12 mg/dL (9-23); Calcium 9.6 mg/dL (8.7-10.4); Carbon Dioxide 28 mmol/L (20-31); Chloride 104 mmol/L (98-107); Glucose 94 mg/dL (74-106); Potassium 4.0 mmol/L (3.5-5.1); Sodium 141 mmol/L (136-145); Total Protein 7.6 g/dL (5.7-8.2)
--- NOTE | 2025-06-25 00:05 | DVH ---
RIGHT Upper Extremity Venous Duplex Clinical History: right upper arm redness and swelling Comparison: None Technique: Duplex Doppler evaluation of the venous system of the RIGHT lower neck and upper extremity including color Doppler and spectral/pulsed waveform analysis was performed. Findings: The internal jugular vein demonstrates appropriate compressibility and waveform variability. The subclavian vein is patent on color Doppler evaluation without intraluminal thrombus and demonstra daryl waveform variability. The visualized portion of the brachiocephalic vein is patent on color Doppler evaluation without intr aluminal thrombus and demonstrates waveform variability. The axillary vein demonstrates appropriate compressibility and waveform variability. The brachial veins demonstrate appropriate compressibility and patency on Doppler evaluation. The basilic vein demonstrates appropriate compressibility and patency on Doppler evaluation. The cephalic vein demonstrates appropriate compressibility with absent flow/phasicity. Impression: 1. No definite venous thrombus identified in the RIGHT upper extremity vessels evaluated above. 2. Normal compressibility of the right cephalic vein with absent flow / phasicity.
[2025-06-25 00:07] VITALS: BP 123/81; PULSE 74; RESP 12; TEMP 97.9; O2SAT 97
[2025-06-25] MEDS ORDERED: ASPI325T6 PO (00:21)
--- NOTE | 2025-06-25 00:21 | ED.PDOC ---
History of Present Illness(SKN HPI Comments s patient comes with c/c of right upper arm swelling and redness s/p iv site pain from surgery last week. patient reports being discharged on s/p gallbladder removal, she noticed her iv site was painful, nothing was done about it, went home and noticed the redness and swelling. patient has started feeling dizzy and dehydrated Chief Complaint: Upper Extremity Time Seen by MD: 20:19 History of Present Illness: Nurses Notes, Medications, Allergies Allergies: Coded Allergies: Cefaclor (Verified Allergy, Unknown, 06/20/25) Sulfa Antibiotics (Verified Allergy, Unknown, 06/20/25) Home Meds Active Scripts Aspirin (Aspirin) 325 Mg Tab, 1 TAB PO DAILY for 10 Days, #10 TAB Prov:DANIEL MENDEZ 06/25/25 Docusate Sodium (Colace) 100 Mg Cap, 1 CAP PO BID PRN, #30 CAP Prov:JEANNE UREÑA MD 06/21/25 Naloxone HCl (Narcan) 4 Mg/0.1 Ml Spr, 4 MG NA SHELF STOCKER, #2 SPRAY Prov:JEANNE UREÑA MD 06/21/25 Hydrocodone-Acetaminophen (Hydrocodone Bitartrate/AC 5-325 mg) 1 Tab Tab, 1 TAB PO Q8HP PRN, #10 TAB Prov:JEANNE UREÑA MD 06/21/25 Information Source: Patient Mode of Arrival: Ambulatory Past Medical History PAST MEDICAL HISTORY: Gallstones Surgical History: MODEL AND MOLD MAKER History: No Pertinent MODEL AND MOLD MAKER History Family History Family History: Reviewed,noncontributory to illness, No family hx of Cancer, No family hx of DM, No family hx of Heart nikia, No family hx of HTN, No family hx ofKidney nikia, No family hx of Liver nikia, No family hx of Lung nikia, No family hx of Stroke Social History Smoker: Non-Smoker Alcohol: Denies ETOH Use Drugs: Denies Drug Use Lives In: Home All Other Systems: Reviewed and Negative (SEE HPI) Physical Exam General Appearance: No Apparent Distress, Normal HEENT: Pharynx Normal Neck: Full Range of Motion, Non-Tender Respiratory: Lungs Clear, No Respiratory Distress, Normal Breath Sounds Cardiovascular: No Edema, No JVD, No Murmur, No Gallop, Normal Peripheral Pulses, Regular Rate/Rhythm Breast Exam: Deferred Gastrointestinal: No Organomegaly, Non Tender, No Pulsatile Mass, Normal Bowel Sounds, Soft Genitalia: Deferred Pelvic: Deferred Rectal: Deferred Extremities: Inflammation (RIGHT UPPER BICEP WITH TRACE EDEMA QND ERYTHEMA), No calf tenderness, Normal capillary refill, Normal inspection, Normal range of motion, Non-tender, No pedal edema Musculoskeletal : Apperance: Normal Neurologic: Alert, handkerchief presser II-XII nml as Tested, No Motor Deficits, Normal Affect, Normal Mood, No Sensory Deficits Cerebellar Function: Normal Reflexes: Normal Skin: Dry, Normal Color, Warm Lymphatic: No Adenopathy Was a procedure done? Was a procedure done?: No Differential Diagnosis (INTG) Differential Diagnosis: Abrasion, Cellulitis, Hematoma Differential Diagnosis: Abscess X-Ray, Labs, Meds, VS Vital Signs Date Time Temp Pulse Resp B/P (MAP) Pulse Ox O2 Delivery O2 Flow Rate FiO2 06/25/25 00:07 97.9 74 12 123/81 (95) 97 97.9 06/24/25 20:13 97.0 85 16 130/86 99 97.0 Lab Test 06/24/25 21:43 06/24/25 20:58 Range/Units White Blood Count 11.2 H 4.4-10.8 10^3/uL Red Blood Count 4.56 4.0-5.20 10^6/uL Hemoglobin 13.3 12.2-16.2 g/dL Hematocrit 38.6 # 36.0-46.0 % Mean Corpuscular Volume 84.8 80.0-100.0 fL Mean Corpuscular Hemoglobin 29.3 28.0-32.0 pg Mean Corpuscular Hemoglobin Concent 34.5 32.0-36.0 g/dL Red Cell Distribution Width 13.1 11.8-14.3 % Platelet Count 403 140-450 10^3/uL Mean Platelet Volume 8.2 6.9-10.8 fL Neutrophils (%) (Auto) 61.3 37.0-80.0 % Lymphocytes (%) (Auto) 29.7 10.0-50.0 % Monocytes (%) (Auto) 6.2 0.0-12.0 % Eosinophils (%) (Auto) 2.1 0.0-7.0 % Basophils (%) (Auto) 0.7 0.0-2.0 % Neutrophils # (Auto) 6.9 1.6-8.6 10 ^3/uL Lymphocytes # (Auto) 3.3 0.4-5.4 10 ^3/uL Monocytes # (Auto) 0.7 0-1.3 10 ^3/uL Eosinophils # (Auto) 0.2 0-0.8 10 ^3/uL Basophils # (Auto) 0.1 0-0.2 10 ^3/uL Nucleated Red Blood Cells 0.1 % D-Dimer, Quantitative 0.96 H 0.0-0.49 mg/L FEU Sodium Level 141 136-145 mmol/L Potassium Level 4.0 3.5-5.1 mmol/L Chloride Level 104 98-107 mmol/L Carbon Dioxide Level 28 20-31 mmol/L Anion Gap 9 5-15 Blood Urea Nitrogen 12 9-23 mg/dL Creatinine 0.74 # 0.550-1.02 mg/dL Glomerular Filtration Rate Calc 111 >90 mL/min BUN/Creatinine Ratio 16.2 10.0-20.0 Serum Glucose 94 74-106 mg/dL Calcium Level 9.6 8.7-10.4 mg/dL Total Bilirubin 0.6 0.2-1.0 mg/dL Aspartate Amino Transferase (AST) 24 13-40 U/L Alanine Aminotransferase (ALT) 35 7-40 U/L Alkaline Phosphatase 82 46-116 U/L Total Protein 7.6 5.7-8.2 g/dL Albumin 4.6 3.2-4.8 g/dL Urine Color Light-yellow Yellow Urine Clarity Turbid H Clear Urine pH 6.5 5.0-9.0 Urine Specific [place] 1.023 1.001-1.035 Urine Protein Negative Negative Urine Ketones Negative Negative Urine Blood Negative Negative /uL Urine Nitrite Negative Negative Urine Bilirubin Negative Negative Urine Urobilinogen Normal Negative mg/dL Urine Leukocyte Esterase Negative Negative /uL Urine RBC 1 0 - 4 /hpf Urine Microscopic WBC 2 0-5 /HPF Urine Squamous Epithelial Cells Mod <5 /hpf Urine Bacteria Few H None Seen /hpf Urine Mucus Few None Seen Urine Glucose Normal Normal mg/dL X-Ray, Labs, Meds, VS Comment Impression: 1. No definite venous thrombus identified in the RIGHT upper extremity vessels evaluated above. 2. Normal compressibility of the right cephalic vein with absent flow / phasicity. SCRIPT TRIAL OF ASA. RETURN FOR INCREASE IN SYMPTOMS, CP, NUMBNESS WEAKNESS DID OR SOB Images Reviewed?: Images reviewed and evaluated by me Time of 1ST Reevaluation: 20:45 Reevaluation 1ST: Unchanged Time of 2ND Reevaluation: 00:21 Reevaluation 2ND: Improved Patient Education/Counseling: Diagnosis, Treatment, Prognosis, Need For Follow Up Family Education/Counseling: No Family Present SEPSIS Sepsis Screen Date sepsis recognized/suspect: Jun 24, 2025 Time Sepsis recognized/suspect: 2017 Recent Procedure: No On Antibiotic Therapy: No Respiratory Rate >20: No Heart Rate >90: No Temp<36 C (96.8 F) or >38.3 C: No SBP <90 or MAP <65 mmHG: No New Acute Mental Status Change: No Is the patient on CPAP, BIPAP,: No Physician Orders Rt Upper Dvt (06/24/25 21:33) Vital Signs Date Time Temp Pulse Resp B/P (MAP) Pulse Ox O2 Delivery O2 Flow Rate FiO2 06/25/25 00:07 97.9 74 12 123/81 (95) 97 97.9 06/24/25 20:13 97.0 85 16 130/86 99 97.0 Laboratory Tests Test 06/24/25 21:43 White Blood Count 11.2 10^3/uL (4.4-10.8) H Departure 1 Departure Time of Disposition: 00:20 Impression: Primary Impression: Phlebitis Disposition: 01 HOME / SELF CARE / HOMELESS Condition: Stable e-Prescriptions Aspirin (Aspirin) 325 Mg Tab 1 TAB PO DAILY for 10 Days, #10 TAB Prov: DANIEL MENDEZ 06/25/25 Discharged With: Significant Other Critical Care Note Critical Care Time?: No Stability Stability form required: DANIEL Masters Jun 25, 2025 00:21
[2025-06-25] MEDS: KETOROLAC TROMETH 60MG/2ML VIAL IM ONE (00:35)
== END 2025-06-25 00:38 | disposition home or self-care (01) ==
LOC: ER 20:11
DX: I80.9 Phlebitis and thrombophlebitis of unspecified site (principal); Z88.2 Allergy status to sulfonamides; Z88.1 Allergy status to other antibiotic agents
CPT/HCPCS: 36415; 80053; 81001; 85025; 85379; 93971; 96372; 99285; J1885